=== PATIENT | male | born 1995 | race Hispanic/Latino ===

== ENCOUNTER 2022-11-01 08:38 | Emergency (ER) | payer OTHER ==
[~2022-11-01] VITALS: Ht 162.6 cm; Wt 108.0 kg
[2022-11-01] MEDS ORDERED: KETOROLAC 30MG VIAL (30MG/ML) IM ONE (12:00)
[2022-11-01 13:55] LABS: BASOPHILS # (AUTO) 0.04 K/uL (0.00-0.20); BASOPHILS % (AUTO) 0.7 % (0.0-5.0); EOSINOPHILS # (AUTO) 0.11 K/uL (0.00-0.70); IMMATURE GRANULOCYTE ABSOLUTE 0.01 K/uL (0-1); LYMPHOCYTES # (AUTO) 2.1 K/uL (1.0-4.8); MEAN CORPUSCULAR HGB CONC 34.4 g/dL (32.0-36.0); MEAN CORPUSCULAR VOLUME 81.5 fL (79-99); MONOCYTES # (AUTO) 0.5 K/uL (0.1-1.0); MONOCYTES % (AUTO) 8.7 % (3.0-13.0); NEUTROPHILS # (AUTO) 2.7 K/uL (1.8-7.7); NEUTROPHILS % (AUTO) 50.4 % (40.0-77.0); PLATELET COUNT (AUTO) 206 K/uL (130-400); RED BLOOD CELL COUNT(AUTO) 5.03 MIL/uL (4.50-6.20); RED CELL DISTRIBUTION WIDTH 11.9 % (11.0-15.5); WHITE BLOOD COUNT (AUTO) 5.4 K/uL (4.8-10.8)
[2022-11-01 14:03] LABS: CREATININE 1.1 mg/dL (0.5-1.5); POTASSIUM 4.2 mmol/L (3.5-5.1)
[2022-11-01 14:23] LABS: APPEARANCE,URINE CLEAR (CLEAR); BILIRUBIN,URINE NEGATIVE (NEGATIVE); COLOR,URINE LIGHT-YELLOW (YELLOW); GLUCOSE, URINE (UA) NEGATIVE (NEGATIVE); KETONES,URINE NEGATIVE (NEGATIVE); LEUKOCYTE ESTERASE ,URINE NEGATIVE Leu/uL (NEGATIVE); NITRATE,URINE NEGATIVE (NEGATIVE); OCCULT BLOOD,URINE NEGATIVE (NEGATIVE); PROTEIN,URINE NEGATIVE (NEGATIVE); UROBILINOGEN,URINE 0.2 mg/dL (0.2-1.0)
[2022-11-01 14:29] LABS: ADD UA MICROSCOPIC YES
[2022-11-01] MEDS ORDERED: IBUP-2070 PO (14:32)
[2022-11-01 14:35] LABS: MUCUS,URINE FEW LPF (None Seen); RBC,URINE 0-1 /HPF (0-1); SQUAMOUS EPITHELIAL CELL,UR RARE /HPF (0-2); WBC,URINE 0-1 /HPF (0-1)
[2022-11-01 14:52] VITALS: BP 130/80; PULSE 55; RESP 18; O2SAT 100
== END 2022-11-01 14:53 | disposition home or self-care (01) ==
LOC: EDH 08:38
DX: S70.11XA Contusion of right thigh, initial encounter (principal); R59.9 Enlarged lymph nodes, unspecified; I49.9 Cardiac arrhythmia, unspecified; X58.XXXA Exposure to other specified factors, initial encounter; Y93.89 Activity, other specified; Y92.89 Other specified places as the place of occurrence of the external cause; Y99.8 Other external cause status
CPT/HCPCS: 99285; 80048; 85025; 81001; 36415; 76882; 96372; J1885

== ENCOUNTER 2023-10-26 16:48 | Emergency (ER) | payer SELFPAY ==
[~2023-10-26] VITALS: Ht 160 cm; Wt 113.4 kg
[~2023-10-26 16:48] MED LIST: IBUP-2070 PO
[2023-10-26 17:23] LABS: BASOPHILS # (AUTO) 0.04 K/uL (0.00-0.20); BASOPHILS % (AUTO) 0.3 % (0.0-5.0); EOSINOPHILS # (AUTO) 0.03 K/uL (0.00-0.70); EOSINOPHILS % (AUTO) 0.2 % (0.0-8.0); HEMATOCRIT 39.9 % (42-54); IMMATURE GRANULOCYTE ABSOLUTE 0.07 K/uL (0-1); LYMPHOCYTES # (AUTO) 2.4 K/uL (1.0-4.8); LYMPHOCYTES % (AUTO) 15.8 % (21.0-51.0); MEAN CORPUSCULAR HEMOGLOBIN 27.9 pg (27.0-33.0); MEAN CORPUSCULAR HGB CONC 34.8 g/dL (32.0-36.0); MEAN CORPUSCULAR VOLUME 80.1 fL (79-99); MONOCYTES # (AUTO) 0.9 K/uL (0.1-1.0); MONOCYTES % (AUTO) 6.2 % (3.0-13.0); NEUTROPHILS # (AUTO) 11.5 K/uL (1.8-7.7); PLATELET COUNT (AUTO) 224 K/uL (130-400); RED BLOOD CELL COUNT(AUTO) 4.98 MIL/uL (4.50-6.20); RED CELL DISTRIBUTION WIDTH 11.9 % (11.0-15.5)
[2023-10-26 17:31] LABS: CREATININE 1.3 mg/dL (0.5-1.3); POTASSIUM 3.6 mmol/L (3.5-5.1)
[2023-10-26 17:45] LABS: B-TYPE NATRIURETIC PEPTIDE 8 pg/mL (0-100)
[2023-10-26 18:21] LABS: APPEARANCE,URINE CLEAR (CLEAR); BILIRUBIN,URINE NEGATIVE (NEGATIVE); COLOR,URINE LIGHT-YELLOW (YELLOW); GLUCOSE, URINE (UA) NEGATIVE (NEGATIVE); KETONES,URINE 10 mg/dL (NEGATIVE); LEUKOCYTE ESTERASE ,URINE NEGATIVE Leu/uL (NEGATIVE); NITRATE,URINE NEGATIVE (NEGATIVE); OCCULT BLOOD,URINE NEGATIVE (NEGATIVE); PROTEIN,URINE NEGATIVE (NEGATIVE); UROBILINOGEN,URINE 0.2 mg/dL (0.2-1.0)
[2023-10-26 18:22] LABS: ADD UA MICROSCOPIC YES
[2023-10-26 18:25] LABS: BACTERIA,URINE RARE /HPF (None Seen); MUCUS,URINE RARE LPF (None Seen); OTHER CASTS, URINE 3 /LPF (None Seen); RBC,URINE 0-1 /HPF (0-1)
[2023-10-26] MEDS: 0.9%NACL 1000ML 1,000 ML IV ONE (18:45)
[2023-10-26 19:30] VITALS: BP 145/92; PULSE 69; RESP 12; TEMP 98.8; O2SAT 98
== END 2023-10-26 19:59 | disposition home or self-care (01) ==
LOC: EDH 16:48
DX: R07.89 Other chest pain (principal); E86.0 Dehydration; R74.8 Abnormal levels of other serum enzymes; Z79.899 Other long term (current) drug therapy; Z98.890 Other specified postprocedural states
CPT/HCPCS: 99285; 96360; 71045; 82550; 84484; 80048; 83880; 85025; 81001; 36415; 93005; J7030

== ENCOUNTER → 2023-12-28 | Outpatient (CLI) | payer OTHER, SELFPAY ==
[~2023-12-28] MED LIST changes: +IOHEXOL 350 MG/ML 100ML INFUS..BTL IV ONE
--- NOTE | 2023-12-28 13:35 | HMCIMG ---
CT CARDIAC ANGIO W/CONT. CCTA REASON: CHEST PAIN COMPARISON: None TECHNIQUE: Images are obtained through the heart in the axial plane before and during bolus IV contrast infusion, 100 cc Omnipaque 350. 2-D and 3-D multiplanar reconstruction images were then performed. The injection had to be repeated once due to motion artifact on the first sequence, total contrast volume was 200 cc. FINDINGS: This dictation is for the noncardiac findings only. Cardiac and coronary artery findings are reported separately. Visualized portions of the lungs are clear. There is normal-appearing pulmonary interstitium. There is no hilar or mediastinal lymphadenopathy. Chest wall structures appear unremarkable. IMPRESSION: 1. Unremarkable noncardiac portions of CT cardiac angiography.
== END | disposition home or self-care (01) ==
LOC: RAH 09:51
PROVIDERS: ATTEND Internal Medicine Cardiovascular Disease
DX: R07.9 Chest pain, unspecified (principal)
CPT/HCPCS: 75574; Q9967

== ENCOUNTER 2024-06-25 17:50 | Emergency (ER) | payer OTHER, SELFPAY ==
[~2024-06-25] VITALS: Ht 162.6 cm; Wt 114.3 kg
[~2024-06-25 17:50] MED LIST changes: -IOHEXOL 350 MG/ML 100ML INFUS..BTL IV ONE
--- NOTE | 2024-06-25 18:08 | ERN ---
ED Note History of Present Illness Stated Complaint: COUGH, SOB, ABD PAIN Chief Complaint: Cough Time Seen by MD: 17:50 Dictation: PATIENT IS A 28-YEAR-OLD MALE COMING IN TODAY WITH A COUGH AND CHEST WALL PAIN TENDERNESS WITH COUGH FOR 4-5 WEEKS. HE STATES WHEN HE COUGHS SOMETIMES THAT IS CLEAR PHLEGM STATES HE HAS A TOBACCO ABUSER SMOKE CIGARETTES, LAST USE TWO WEEKS AGO WHEN HE STARTED THE COUGH. HE DENIES FEVER CHILLS NAUSEA VOMITING. STATES HE HAS A PRIMARY CARE DOCTOR BUT DID NOT GO Allergies: Coded Allergies: No Known Allergies (Unverified Allergy, Unknown, 11/01/22) Home Meds Active Scripts Ibuprofen (Ibuprofen) 600 Mg Tablet, 600 MG PO Q6H PRN for PAIN, #15 TAB 0 Refills Prov:CESILIANIKKIE Opal BRASHER 11/01/22 Past Medical History Past Medical History: Asthma, Other Additional Past Medical Hx: ARRYTHMIA Surgical History: Other RN Note Reviewed/Agreed w/PFSH: Yes Review of System Dictation CONSTITUTIONAL: NEGATIVE EXCEPT FOR HPI HEAD/FACE: NEGATIVE EXCEPT FOR HPI EENT: NEGATIVE EXCEPT FOR HPI RESPIRATORY: NEGATIVE EXCEPT FOR HPI COUGH PERSISTENT FOR 4-5 WEEKS GASTROINTESTINAL/ABDOMINAL: NEGATIVE EXCEPT FOR HPI GENITOURINARY: NEGATIVE EXCEPT FOR HPI MUSCULOSKELETAL: NEGATIVE EXCEPT FOR HPI INTEGUMENTARY: NEGATIVE EXCEPT FOR HPI NEUROLOGICAL/PSYCH: NEGATIVE EXCEPT FOR HPI HEMATOLOGIC/LYMPHATIC: NEGATIVE EXCEPT FOR HPI ALL SYSTEMS NEGATIVE, EXCEPT NOTED ABOVE. 13 POINT REVIEW OF SYSTEMS ASSESSED AND ALL NEGATIVE EXCEPT FOR ABOVE. Initial Vital Sign VS Vital Signs Date Time Temp Pulse Resp B/P (MAP) Pulse Ox O2 Delivery O2 Flow Rate FiO2 06/25/24 17:53 98.8 121 22 163/100 98 Room Air 0 06/25/24 18:41 21 Physical Exam Dictation VITAL SIGNS REVIEWED GENERAL APPEARANCE: ALERT, ORIENTED X 3, MODERATE ACUTE DISTRESS, WELL DEVELOPED, NOURISHED. PERSISTENT COUGH NOTED/OBESE HEAD AND FACE: NON-TRAUMATIC. EYES: PERRL, PINK CONJUNCTIVAS, EYELID NO TRAUMA, ANTERIOR CHAMBER WITH ARCUS SENILIS. EARS: PINNAS INTACT AND NO SIGNS OF TRAUMA OR ERYTHEMA EAR CANALS CLEAR AND NO DISCHARGE TM NO ERYTHEMA NOSE: NO DISCHARGE, NO BLEEDING. OROPHARYNX: MOUTH NORMAL, TONGUE PINK, PHARYNX CLEAR,NO ERYTHEMA, TONSILS NO EXUDATES, NO ABSCESSES NOTED, MUCOUS MEMBRANE MOIST NECK: SUPPLE, NON-TENDER, NO THYROMEGALY, NO MASSES, NO JVD, NO BRUITS BREAST:DEFERRED CHEST:NO TENDERNESS, NO CREPITUS, NO PARADOXICAL MOVEMENT, NO RETRACTIONS LUNGS:CLEAR, WELL-VENTILATED, SYMMETRIC, NO RALES, NO WHEEZING, NO RHONCHI, NO STRIDOR, GOOD BREATH SOUNDS BILATERALLY HEART: REGULAR RATE, REGULAR RHYTHM, NO MURMUR, NO GALLOPS VASCULAR: NO PERIPHERAL EDEMA, ABDOMEN: SOFT, POSITIVE BOWEL SOUNDS, NONDISTENDED, NO GUARDING, NONTENDER, NO REBOUND, NO MASSES NO HEPATOMEGALY, NO SPLENOMEGALY, NO LIM'S SIGN, NO HERNIAS. RECTAL: DEFERRED GENITAL: DEFERRED NEUROLOGICAL: NORMAL SPEECH, MOTOR FUNCTION INTACT, SENSORY FUNCTION INTACT MUSCULOSKELETAL: NECK NONTENDER, FULL RANGE OF MOTION, BACK NONTENDER, FULL RANGE OF MOTION, EXTREMITIES: NONTENDER, FULL RANGE OF MOTION SKIN: COLOR PINK, DRY, NO TURGOR, NO RASH, NO LACERATIONS, NO ABRASIONS, NO CONTUSIONS. LYMPHATIC: DEFERRED Results (Laboratory/Radiology) Laboratory/Radiology Laboratory Tests Test 06/25/24 18:07 SARS-CoV-2 Antigen (Rapid) PRESUMPTIVE NEGATIVE Labs Reviewed?: Yes ED Course ED Course Orders Procedure Category Date Status Time Dexamethasone 4mg/Ml PHA 06/25/24 Complete 1ml Vial (Dexametha 18:30 Ketorolac 60mg/2ml PHA 06/25/24 Complete (Toradol 60mg/2ml) 18:30 Chest 1vw RAD 06/25/24 Resulted 18:04 Covid19 (Sars Antigen LAB 06/25/24 Complete Rapid) 18:04 Albuterol 0.083% PHA 06/25/24 Complete 2.5mg/3ml (Proventil 18:30 Budesonide 0.5 Mg/2 PHA 06/25/24 Complete Ml Inh (Pulmicort 0. 18:05 Current Medications Medications (Trade) Dose Ordered Sig/Sushant Route PRN Reason Start Time Stop Time Status Last Admin Dose Admin Albuterol Sulfate (Proventil 0.083% 2.5mg/3ml) 2.5 mg ONCE ONCE IH 06/25/24 18:30 06/25/24 18:31 DC 06/25/24 18:38 Budesonide (Pulmicort 0.5 Mg/2ml) 0.5 mg ONCE STAT IH 06/25/24 18:05 06/25/24 18:08 DC 06/25/24 18:38 Dexamethasone Sodium Phosphate (dexaMETHasone 4MG/ML 1ML VIAL) 8 mg ONCE ONCE IM 06/25/24 18:30 06/25/24 18:31 DC 06/25/24 18:18 Ketorolac Tromethamine (toRADol 60MG/ 2ML) 60 mg ONCE ONCE IM 06/25/24 18:30 06/25/24 18:31 DC 06/25/24 18:19 Vital Signs Date Time Temp Pulse Resp B/P (MAP) Pulse Ox O2 Delivery O2 Flow Rate FiO2 06/25/24 18:41 107 22 06/25/24 18:41 107 22 N/A Room Air 21 06/25/24 17:53 98.8 121 22 163/100 98 Room Air 0 1907/COUGH IS MARKEDLY REDUCED AFTER TREATMENT WITH TORADOL AND STEROID/BUDESONIDE AND ALBUTEROL. PATIENT IS SATTING 97 98% ON ROOM AIR HE IS AWARE TO BE DISCHARGED HOME, NO WORK UNTIL CLEARED BY DR. ELLIOTT TOMORROW. Medical Decision Making MDM MEDICAL DISCHARGE MAKING BASED ON SARS SWAB PATIENT TREATED WITH DECADRON/TORADOL/BUDESONIDE/ALBUTEROL FOR COUGH PATIENT MARKEDLY IMPROVED AFTER TREATMENT DISCHARGED HOME WITH ALBUTEROL/PREDNISONE/TESSALON WAS TOLD TO STOP SMOKING WITH AT BEDSIDE SEE DR. ELLIOTT IN THE NEXT 1-2 DAYS NO WORK UNTIL CLEARED BY DR. ELLIOTT DX & DISP Disposition: Discharge Departure Impression: Primary Impression: Viral URI with cough Additional Impression: Tobacco abuse Condition: Stable Scripts Benzonatate (Tessalon Perles) 100 Mg Cap 200 MG PO TID for cough, #60 CAP 0 Refills Prov: JOEL MARTINEZ NP 06/25/24 Albuterol Sulfate (Ventolin Hfa/Proventil Hfa/Proair Hfa) 90 Mcg Puff 2 PUFF IH Q4H for WHEEZING, #1 INHALER 0 Refills Prov: JOEL MARTINEZ NP 06/25/24 Prednisone (Prednisone) 20 Mg Tablet 1 TAB PO AD for 6 Days, #14 TAB 0 Refills TAKE 1 TAB BY MOUTH THREE TIMES PER DAY X3 DAYS, THEN TAKE 1 TAB BY MOUTH TWICE A DAY X2 DAYS, THEN TAKE 1 TAB BY MOUTH ONCE A DAY X1 DAY. Prov: JOEL MARTINEZ NP 06/25/24 Additional Instructions: FOLLOW-UP WITH PRIMARY CARE PROVIDER IN 1 TO 2 DAYS. TAKE MEDICATIONS DIRECTED HERE IN THE EMERGENCY ROOM. OKAY TO CONTINUE HOME MEDICATIONS UNLESS OTHERWISE DISCUSSED DURING YOUR VISIT IN THE EMERGENCY ROOM TODAY. RETURN TO YOUR NEAREST EMERGENCY ROOM IF SYMPTOMS WORSEN OR IF THERE IS NO IMPROVEMENT. CALL 911 IF YOU NEED IMMEDIATE ASSISTANCE. TAKE TYLENOL OR MOTRIN [id number] NEEDED AND IF NO CONTRAINDICATIONS ARE PRESENT. INCREASE ORAL HYDRATION. A WOUND CULTURE OR URINE CULTURE WAS ORDERED HERE IN THE E MERGENCY ROOM DEPARTMENT PLEASE FOLLOW-UP WITH PRIMARY CARE PROVIDER AND ADVISE THEM TO GET REPEAT PORTS FROM OUR FACILITY. IF YOU HAD ANY JORGE WRAP/SPLINTS THAT WERE APPLIED HERE, PLEASE DO NOT REMOVE THEM UNTIL YOU SEE YOUR PRIMARY CARE OR SPECIALTY. USE ALBUTEROL INHALER EVERY 4 HOURS WHILE AWAKE FOR THE NEXT THREE DAYS. TAKE PREDNISONE DIRECTED UNTIL GONE. STOP TOBACCO ABUSE. NO WORK UNTIL CLEARED BY PRIMARY CARE DOCTOR IN 1-2 DAYS. Referrals: INESSA ELLIOTT MD (PCP) Time of Disposition: 19:11 I have reviewed the case, and I agree with, Diagnosis and Plan JOEL MARTINEZ NP June 25, 2024 18:08
[2024-06-25] MEDS: dexaMETHasone SOD PHOSPHATE 4 MG/ML 1ML VIAL IM ONE (18:18)
[2024-06-25] MEDS: ketOROlac 60 MG VIAL (30MG/ML) IM ONE (18:19)
[2024-06-25] MEDS: ALBUTEROL 0.083% 2.5 MG/3 ML INH IH ONE (18:38)
[2024-06-25] MEDS: BUDESONIDE 0.5 MG/2 ML INH IH STA (18:38)
[2024-06-25 18:41] VITALS: PULSE 107; RESP 22; O2SAT 99
--- NOTE | 2024-06-25 18:51 | HMCIMG ---
PORTABLE CHEST RADIOGRAPH INDICATION: COUGH X4 WEEKS COMPARISON: None FINDINGS: Heart size is normal. The pulmonary vascularity and dameon appear normal. No abnormal pulmonary parenchymal opacity or consolidation identified. No significant pleural effusion noted. No pneumothorax detected. IMPRESSION: No radiographic evidence for any acute cardiopulmonary process.
[2024-06-25] MEDS ORDERED: PRED20TA3 PO (19:12)
[2024-06-25] MEDS ORDERED: BENZ-39 PO (19:12)
[2024-06-25] MEDS ORDERED: ALBUHFA IH (19:12)
[2024-06-25 19:17] VITALS: BP 104/72; PULSE 103; RESP 19; TEMP 97.9; O2SAT 98
== END 2024-06-25 19:27 | disposition home or self-care (01) ==
LOC: EDH 17:50
DX: J06.9 Acute upper respiratory infection, unspecified (principal); R05.9 Cough, unspecified; B97.89 Other viral agents as the cause of diseases classified elsewhere; J45.909 Unspecified asthma, uncomplicated; Z72.0 Tobacco use; Z79.51 Long term (current) use of inhaled steroids; Z20.822 Contact with and (suspected) exposure to COVID-19
CPT/HCPCS: 99284; 71045; 87426; 96372 ×2; 94640; J1100; J1885